=== PATIENT | female | born 1970 | race Caucasian/White ===

== ENCOUNTER 2017-07-14 14:50 | Emergency (ER) | payer OTHER ==
[~2017-07-14] VITALS: Ht 160 cm; Wt 66.7 kg
--- NOTE | ~2017-07-14 | EKG ---
PATIENT: KEV GONSALVES UNIT #: [id number] Ventricular Rate: 73 BPM Atrial Rate: 73 BPM P-R Interval: 98 ms QRS Duration: 82 ms Q-T Interval: 432 ms QTC Calculation(Bezet): 475 ms P [place]: 30 degrees Calculated R [place]: 81 degrees Calculated T [place]: 54 degrees Diagnosis Line: Sinus rhythm with short [facility] Diagnosis Line: Otherwise normal ECG Diagnosis Line: Diagnosis Line: Confirmed by JARET JACINTO MD ([id number]) on 07/14/2017 Diagnosis Line: 6:06:50 PM INTERPRETING MD: ORVILLE SORIA
[2017-07-14 15:30] LABS: BASOPHIL# 0.1 X10e3 (0-0.3); BASOPHIL% 1.3 % (0-2.5); EOSINOPHIL# 0.3 X10e3 (0-0.7); EOSINOPHIL% 6.3 % (0.0-7.0); HEMATOCRIT 37.6 % (35.0-45.0); HEMOGLOBIN 12.6 gm/dL (12.0-16.0); LYMPHOCYTE% 18.4 % (17.0-45.0); MEAN CELL VOLUME 90.7 FL (83-96); MEAN CORPUSCULAR HEMOGLOBIN 30.6 PG (28-34); MEAN CORPUSCULAR HGB CONC 33.7 g/dL (30-36); MONOCYTE# 0.3 X10e3 (0-1.0); NEUTROPHIL# 3.7 X10e3 (1.5-7.1); PLATELET COUNT 277 X10e3 (140-420); RED BLOOD COUNT 4.14 X10e (3.90-5.30); RED CELL DISTRIBUTION WIDTH 14.6 % (11.0-15.5); WHITE BLOOD COUNT 5.5 X10e3 (4.0-10.5)
[2017-07-14 15:31] LABS: DIFF IND NO
[2017-07-14 15:34] LABS: URINE SOURCE CLEAN CATCH
[2017-07-14 15:37] LABS: POC - CKMB <1.0 ng/mL (0.0-7.9); POC - TROPONIN <0.05 ng/mL (<=0.05)
[2017-07-14 15:43] LABS: URINE APPEARANCE CLEAR; URINE BILIRUBIN NEG (NEG); URINE BLOOD NEG (NEG); URINE COLOR YELLOW; URINE GLUCOSE 500 MG/DL (NEG); URINE KETONE NEG (NEG); URINE LEUKOCYTE ESTERASE NEG (NEG); URINE NITRATE NEG (NEG); URINE PROTEIN NEG (NEG); URINE SPECIFIC GRAVITY 1.012 (1.003-1.035); URINE UROBILINOGEN 0.2 MG/DL (NEG)
[2017-07-14 15:50] LABS: CULTURE INDICATED? NO
[2017-07-14 15:57] LABS: CALCIUM SERUM 9.1 mg/dL (8.4-10.2); CREATININE SERUM 0.8 mg/dL (0.6-1.4); GLOM FILT RATE Estimated 89.1 mL/min (>60); POTASSIUM 4.4 mmol/L (3.5-5.1)
== END 2017-07-14 16:55 | disposition home or self-care (01) ==
LOC: CED 14:50
PROVIDERS: Emergency Medicine
DX: E11.649 Type 2 diabetes mellitus with hypoglycemia without coma (principal)
CPT/HCPCS: 36415; 51701; 80048; 81003; 82553; 82947; 84484; 85025; 87040; 93005; 96372; 96374; 99285; J1610